=== PATIENT | female | born 1985 | race Hispanic/Latino ===

== ENCOUNTER 2019-05-01 | Emergency (ER) | payer SELFPAY ==
[~2019-05-01] MED LIST: ELIMITE60 GM EX; FIORICET PO; HYDROXYZINE HCL25 M1 PO; KEFLEX500 M1 PO; LORTAB 7.5-3251 TAB PO; ULTRAM50 M1 PO; ZOFRAN8 MG SL
[2019-05-01] MEDS ORDERED: CYCLOBENZAPR5 MG PO (09:20)
== END 2019-05-01 10:03 | disposition home or self-care (01) | DRG 556 ==
DX: M62.838 Other muscle spasm (principal)

== ENCOUNTER 2019-05-25 | Emergency (ER) | payer SELFPAY ==
[~2019-05-25] MED LIST changes: +CYCLOBENZAPR5 MG PO
[2019-05-25] MEDS ORDERED: AMOX/K CLAV875 M1 PO (21:26)
== END 2019-05-25 21:30 | disposition home or self-care (01) | DRG 203 ==
DX: J40 Bronchitis, not specified as acute or chronic (principal)

== ENCOUNTER 2019-06-09 | Emergency (ER) | payer SELFPAY ==
[~2019-06-09] MED LIST changes: +AMOX/K CLAV875 M1 PO
[2019-06-09 12:13] LABS: HEMATOCRIT 41.4 % (37.0-47.0); HEMOGLOBIN 14.4 g/dl (12.0-16.0); IMMATURE GRANULOCYTES 0.4 % (0.0-5.0); MEAN CELL VOLUME 87.2 fL CALC (80.0-100.0); MEAN CORPUSCULAR HGB 30.3 pG CALC (26.0-32.0); MEAN CORPUSCULAR HGB CONC 34.8 g/dL CAL (32.0-36.0); NEUT# 11.79 thou/uL (2.00-7.15); RED BLOOD COUNT 4.75 mill/uL (4.20-5.60); RED CELL DISTRI WIDTH 12.6 % (11.5-15.5)
[2019-06-09 12:41] LABS: ALBUMIN 4.3 g/dL (3.2-5.0); ALKALINE PHOSPHATASE 100 u/l (38-126); AMYLASE 114 u/l (30-110); ANION GAP 13 (6-22 (CALC)); BUN 9 mg/dL (7-17); BUN/CREATININE RATIO 12 (12-20 (CALC)); CARBON DIOXIDE 20 mmol/l (22-30); CHLORIDE 107 mmol/l (95-108); CREATININE 0.7 mg/dL (0.5-1.0); GFR > 60 ML/MIN (>=60 (CALC)); GFR FOR AFR.AMER. > 60 ML/MIN (>=60 (CALC)); LIPASE 106 u/l (23-300); POTASSIUM 3.4 mmol/l (3.5-5.1); SGOT/AST 43 u/l (14-36); SODIUM 136 mmol/l (137-146); TOTAL PROTEIN 7.9 g/dL (6.3-8.2)
[2019-06-09] MEDS ORDERED: ONDANSETRON4 MG PO (14:20)
[2019-06-09] MEDS ORDERED: METRONIDAZOL500 MG PO (14:20)
[2019-06-09] MEDS ORDERED: CIPROFLOXACN500 MG PO (14:20)
[2019-06-09 15:48] LABS: URINE BILIRUBIN - DIPSTICK NEGATIVE (NEGATIVE); URINE BLOOD DIPSTICK TRACE-INTACT (NEGATIVE); URINE COLOR YELLOW; URINE GLUCOSE - DIPSTICK NEGATIVE (NEGATIVE); URINE KETONE NEGATIVE (NEGATIVE); URINE LEUK ESTERASE NEGATIVE (NEGATIVE); URINE NITRITE - DIPSTICK NEGATIVE (Negative); URINE PROTEIN - DIPSTICK NEGATIVE (NEG-TRACE); URINE UROBILINOGEN - DIPSTICK 0.2 E.U./dL (0.2)
== END 2019-06-09 15:49 | disposition home or self-care (01) | DRG 392 ==
PROVIDERS: Emergency Medicine
DX: K52.9 Noninfective gastroenteritis and colitis, unspecified (principal)
CPT/HCPCS: Q9967

== ENCOUNTER 2020-06-14 | Emergency (ER) | payer OTHER ==
[~2020-06-14] MED LIST changes: +CIPROFLOXACN500 MG PO; +METRONIDAZOL500 MG PO; +ONDANSETRON4 MG PO
[2020-06-14 10:51] LABS: HEMATOCRIT 44.5 % (37.0-47.0); HEMOGLOBIN 14.9 g/dl (12.0-16.0); IMMATURE GRANULOCYTES 0.5 % (0.0-5.0); MEAN CORPUSCULAR HGB 29.8 pG CALC (26.0-32.0); MEAN CORPUSCULAR HGB CONC 33.5 g/dL CAL (32.0-36.0); NEUT# 3.1 thou/uL (2.00-7.15); RED CELL DISTRI WIDTH 12.4 % (11.5-15.5)
[2020-06-14 11:17] LABS: ALBUMIN 4.4 g/dL (3.2-5.0); ALKALINE PHOSPHATASE 91 u/l (38-126); ANION GAP 10 (6-22 (CALC)); BILIRUBIN, TOTAL 0.7 mg/dL (0.0-1.4); BUN 10 mg/dL (7-17); BUN/CREATININE RATIO 13 (12-20 (CALC)); CARBON DIOXIDE 28 mmol/l (22-30); CHLORIDE 104 mmol/l (95-108); CREATININE 0.8 mg/dL (0.5-1.0); GFR > 60 ML/MIN (>=60 (CALC)); GFR FOR AFR.AMER. > 60 ML/MIN (>=60 (CALC)); LIPASE 127 u/l (23-300); POTASSIUM 3.9 mmol/l (3.5-5.1); SGOT/AST 48 u/l (14-36); SODIUM 138 mmol/l (137-146); TOTAL PROTEIN 8.1 g/dL (6.3-8.2)
== END 2020-06-14 12:26 | disposition home or self-care (01) | DRG 556 ==
PROVIDERS: Family Medicine
DX: M25.512 Pain in left shoulder (principal); R07.89 Other chest pain; M54.6 Pain in thoracic spine; M54.5 Low back pain; V49.40XA Driver injured in collision with unspecified motor vehicles in traffic accident, initial encounter

== ENCOUNTER 2020-08-14 15:45 | Emergency (ER) | payer SELFPAY ==
[~2020-08-14] VITALS: Ht 165.1 cm; Wt 95.0 kg
[2020-08-14] MEDS ORDERED: AMOX/K CLAV875 M1 PO (16:37)
[2020-08-14] MEDS ORDERED: MEDROL DOSEPAK4 MG (16:37)
[2020-08-14] MEDS ORDERED: ZPAK PO (18:51)
[2020-08-14] MEDS ORDERED: ALL DAY10 MG PO (18:51)
[2020-08-14 18:55] VITALS: BP 103/55
== END 2020-08-14 19:03 | disposition home or self-care (01) | DRG 916 ==
LOC: ED 15:45
DX: T78.40XA Allergy, unspecified, initial encounter (principal); X58.XXXA Exposure to other specified factors, initial encounter; J06.9 Acute upper respiratory infection, unspecified

== ENCOUNTER 2021-01-04 18:27 | Emergency (ER) | payer BC ==
[~2021-01-04] VITALS: Ht 165.1 cm; Wt 92.0 kg
[~2021-01-04 18:27] MED LIST changes: +ALL DAY10 MG PO; +MEDROL DOSEPAK4 MG; +ZPAK PO
[2021-01-04 19:33] LABS: HEMATOCRIT 41.9 % (37.0-47.0); HEMOGLOBIN 14.2 g/dl (12.0-16.0); IMMATURE GRANULOCYTES 0.3 % (0.0-5.0); MEAN CELL VOLUME 89.9 fL CALC (80.0-100.0); MEAN CORPUSCULAR HGB 30.5 pG CALC (26.0-32.0); MEAN CORPUSCULAR HGB CONC 33.9 g/dL CAL (32.0-36.0); NEUT# 3.3 thou/uL (2.00-7.15); RED BLOOD COUNT 4.66 mill/uL (4.20-5.60); RED CELL DISTRI WIDTH 12.3 % (11.5-15.5)
[2021-01-04 19:47] LABS: ALBUMIN 4.1 g/dL (3.2-5.0); ALKALINE PHOSPHATASE 99 u/l (38-126); ANION GAP 11 (6-22 (CALC)); BILIRUBIN, TOTAL 0.5 mg/dL (0.0-1.4); BUN 16 mg/dL (7-17); BUN/CREATININE RATIO 16 (12-20 (CALC)); CARBON DIOXIDE 29 mmol/l (22-30); CHLORIDE 106 mmol/l (95-108); GFR > 60 ML/MIN (>=60 (CALC)); GFR FOR AFR.AMER. > 60 ML/MIN (>=60 (CALC)); POTASSIUM 3.3 mmol/l (3.5-5.1); SGOT/AST 61 u/l (14-36); SODIUM 143 mmol/l (137-146); TOTAL PROTEIN 7.6 g/dL (6.3-8.2)
[2021-01-04] MEDS ORDERED: MEDDOSEPAK PO (20:00)
[2021-01-04 20:10] VITALS: BP 118/64
== END 2021-01-04 20:10 | disposition home or self-care (01) | DRG 918 ==
LOC: ED 18:27
DX: T54.91XA Toxic effect of unspecified corrosive substance, accidental (unintentional), initial encounter (principal); R06.02 Shortness of breath; Y92.009 Unspecified place in unspecified non-institutional (private) residence as the place of occurrence of the external cause; Z20.822 Contact with and (suspected) exposure to COVID-19

== ENCOUNTER 2021-03-14 17:17 | Emergency (ER) | payer SELFPAY ==
[~2021-03-14] VITALS: Ht 165.1 cm; Wt 78.0 kg
[~2021-03-14 17:17] MED LIST changes: +MEDDOSEPAK PO
[2021-03-14 19:10] VITALS: BP 122/77
== END 2021-03-14 19:15 | disposition home or self-care (01) | DRG 153 ==
LOC: ED 17:17
DX: J06.9 Acute upper respiratory infection, unspecified (principal); E66.9 Obesity, unspecified; Z20.822 Contact with and (suspected) exposure to COVID-19

== ENCOUNTER 2021-07-18 01:57 | Emergency (ER) | payer SELFPAY ==
[~2021-07-18] VITALS: Ht 165.1 cm; Wt 175.0 kg
[2021-07-18 02:07] VITALS: BP 127/66
[2021-07-18 02:37] VITALS: BP 119/71
[2021-07-18 02:38] LABS: HEMOGLOBIN 13.9 g/dl (12.0-16.0); IMMATURE GRANULOCYTES 0.2 % (0.0-5.0); MEAN CELL VOLUME 89.5 fL CALC (80.0-100.0); MEAN CORPUSCULAR HGB 31.1 pG CALC (26.0-32.0); MEAN CORPUSCULAR HGB CONC 34.8 g/dL CAL (32.0-36.0); NEUT# 5.92 thou/uL (2.00-7.15); RED BLOOD COUNT 4.47 mill/uL (4.20-5.60); RED CELL DISTRI WIDTH 12.5 % (11.5-15.5)
[2021-07-18 02:47] LABS: HCG SERUM/URINE (NEG/POS) NEGATIVE (NEGATIVE)
[2021-07-18 02:54] LABS: ALBUMIN 3.8 g/dL (3.2-5.0); ALKALINE PHOSPHATASE 104 u/l (38-126); BILIRUBIN, TOTAL 0.4 mg/dL (0.0-1.4); BUN 10 mg/dL (7-17); BUN/CREATININE RATIO 15 (12-20 (CALC)); CHLORIDE 110 mmol/l (95-108); CREATININE 0.7 mg/dL (0.5-1.0); GFR > 60 ML/MIN (>=60 (CALC)); GFR FOR AFR.AMER. > 60 ML/MIN (>=60 (CALC)); POTASSIUM 3.3 mmol/l (3.5-5.1); SGOT/AST 46 u/l (14-36); SODIUM 139 mmol/l (137-146); TOTAL PROTEIN 7.1 g/dL (6.3-8.2)
[2021-07-18 03:04] LABS: ANION GAP 10 (6-22 (CALC)); CARBON DIOXIDE 22 mmol/l (22-30)
[2021-07-18 03:17] VITALS: BP 106/58
[2021-07-18 03:30] LABS: URINE BILIRUBIN - DIPSTICK NEGATIVE (NEGATIVE); URINE BLOOD DIPSTICK SMALL (NEGATIVE); URINE COLOR YELLOW; URINE GLUCOSE - DIPSTICK NEGATIVE (NEGATIVE); URINE KETONE NEGATIVE (NEGATIVE); URINE PROTEIN - DIPSTICK TRACE mg/dL (NEG-TRACE); URINE SPECIFIC GRAVITY >=1.030; URINE UROBILINOGEN - DIPSTICK 0.2 E.U./dL (0.2)
[2021-07-18 03:31] VITALS: BP 108/60
[2021-07-18 03:36] LABS: URINE NITRITE - DIPSTICK POSITIVE (Negative)
[2021-07-18 03:44] LABS: URINE EPITHELIAL CELLS MODERATE EPI/hpf (0-FEW); URINE LEUK ESTERASE MODERATE (NEGATIVE); URINE WBC 20-50 WBC/hpf (0-5)
[2021-07-18 03:45] LABS: URINE BACTERIA MANY hpf
[2021-07-18 04:01] VITALS: BP 114/68
[2021-07-18] MEDS ORDERED: NAPROXEN500 MG PO (04:18)
[2021-07-18] MEDS ORDERED: CYCLOBENZAPRINE10 MG PO (04:18)
[2021-07-18] MEDS ORDERED: KEFLEX500 MG PO (04:18)
[2021-07-18 04:31] VITALS: BP 112/60
== END 2021-07-18 04:56 | disposition home or self-care (01) | DRG 552 ==
LOC: ED 01:57
PROVIDERS: Emergency Medicine
DX: S13.9XXA Sprain of joints and ligaments of unspecified parts of neck, initial encounter (principal); N39.0 Urinary tract infection, site not specified; M62.838 Other muscle spasm; B96.20 Unspecified Escherichia coli [E. coli] as the cause of diseases classified elsewhere; X58.XXXA Exposure to other specified factors, initial encounter; Z20.822 Contact with and (suspected) exposure to COVID-19

== ENCOUNTER 2021-11-25 15:38 | Emergency (ER) | payer OTHER ==
[~2021-11-25] VITALS: Ht 165.1 cm; Wt 95.2 kg
[2021-11-25] VITALS (7 sets, daily range): BP systolic 106–136; BP diastolic 53–77
[~2021-11-25 15:38] MED LIST changes: +CYCLOBENZAPRINE10 MG PO; +KEFLEX500 MG PO; +NAPROXEN500 MG PO
[2021-11-25] MEDS ORDERED: NAPROXEN500 MG PO (18:28)
== END 2021-11-25 18:47 | disposition home or self-care (01) | DRG 605 ==
LOC: ED 15:38
DX: S60.511A Abrasion of right hand, initial encounter (principal); S60.221A Contusion of right hand, initial encounter; W31.89XA Contact with other specified machinery, initial encounter; Y93.H3 Activity, building and construction; Y92.89 Other specified places as the place of occurrence of the external cause; Y99.0 Civilian activity done for income or pay

== ENCOUNTER 2023-09-15 03:08 | Emergency (ER) | payer SELFPAY ==
[~2023-09-15] VITALS: Ht 157.5 cm; Wt 97.0 kg
[2023-09-15] MEDS ORDERED: ALUM & MAG HYDROX-SIMETHICONE 30 ML PO ONE (03:30)
[2023-09-15] MEDS ORDERED: KETOROLAC TROMETHAMINE 30 MG/ML SDV IV ONE (03:35)
[2023-09-15 03:51] LABS: BASO% 0.4 % (0-3); EOS% 1.7 % (0-8); HEMATOCRIT 42.3 % (37.0-47.0); HEMOGLOBIN 14.5 g/dl (12.0-16.0); IMMATURE GRANULOCYTES 0.3 % (0.0-5.0); LYMPH% 32.1 % (15-41); MEAN CELL VOLUME 89.8 fL CALC (80.0-100.0); MEAN CORPUSCULAR HGB 30.8 pG CALC (26.0-32.0); MEAN CORPUSCULAR HGB CONC 34.3 g/dL CAL (32.0-36.0); MONO% 6.5 % (2-13); NEUT# 4.05 thou/uL (2.00-7.15); RED BLOOD COUNT 4.71 mill/uL (4.20-5.60); RED CELL DISTRI WIDTH 12.4 % (11.5-15.5)
[2023-09-15 04:04] LABS: ALKALINE PHOSPHATASE 125 u/l (38-126); BILIRUBIN, TOTAL 0.3 mg/dL (0.02-1.3); BUN 14 mg/dL (7-17); BUN/CREATININE RATIO 16 (12-20 (CALC)); CHLORIDE 109 mmol/l (95-108); CREATININE 0.9 mg/dL (0.5-1.0); ESTIMATED GFR 84 ML/MIN (>=90 (CALC)); POTASSIUM 3.8 mmol/l (3.5-5.1); SODIUM 139 mmol/l (137-146); TOTAL PROTEIN 7.9 g/dL (6.3-8.2)
[2023-09-15 04:16] LABS: ANION GAP 7 (6-22 (CALC)); CARBON DIOXIDE 27 mmol/l (22-30); SGOT/AST 152 u/l (14-36)
[2023-09-15] MEDS ORDERED: MORPHINE SULFATE 4 MG/ML VIAL IV ONE (04:50)
[2023-09-15 05:10] VITALS: BP 122/79
== END 2023-09-15 05:16 | disposition home or self-care (01) | DRG 313 ==
LOC: ED 03:08
PROVIDERS: Family Medicine
DX: R07.89 Other chest pain (principal)

== ENCOUNTER 2023-10-08 14:29 | Emergency (ER) | payer OTHER ==
[~2023-10-08] VITALS: Ht 157.5 cm; Wt 104.2 kg
[2023-10-08 14:40] VITALS: BP 134/85
[2023-10-08 14:45] VITALS: BP 156/83
[2023-10-08] MEDS ORDERED: LIDOcaine HCl 1% (Local Anesth.) 20 ML VIAL IM STA (14:48)
[2023-10-08] MEDS ORDERED: cefTRIAXone SODIUM 2 GM/VIAL SDV IM ONE (14:50)
[2023-10-08] MEDS ORDERED: METRONIDAZOLE500 MG PO (14:53)
[2023-10-08 15:01] VITALS: BP 152/86
[2023-10-08 15:15] VITALS: BP 141/81
[2023-10-08 15:21] VITALS: BP 141/81
== END 2023-10-08 15:36 | disposition home or self-care (01) | DRG 159 ==
LOC: ED 14:29
DX: K04.7 Periapical abscess without sinus (principal)

== ENCOUNTER 2023-12-01 06:39 | Emergency (ER) | payer OTHER ==
[~2023-12-01] VITALS: Ht 157.5 cm; Wt 99.0 kg
[~2023-12-01 06:39] MED LIST changes: +METRONIDAZOLE500 MG PO
[2023-12-01 06:47] VITALS: BP 136/65
[2023-12-01 07:01] VITALS: BP 127/98
[2023-12-01] MEDS ORDERED: MECLIZINE HCL 25 MG/TAB PO ONE (07:10)
[2023-12-01 07:51] VITALS: BP 134/64
[2023-12-01 08:01] VITALS: BP 112/71
[2023-12-01] MEDS ORDERED: MECLIZINE25 M1 PO (08:57)
[2023-12-01 09:00] VITALS: BP 112/71
== END 2023-12-01 09:00 | disposition home or self-care (01) | DRG 149 ==
LOC: ED 06:39
DX: R42 Dizziness and giddiness (principal)